=== PATIENT | male | born 2000 | race Caucasian/White ===

== ENCOUNTER 2022-07-23 14:24 | Emergency (ER) | payer SELFPAY ==
[2022-07-23] MEDS ORDERED: Cyclobenzaprine 10 MG TAB ONE (15:37)
[2022-07-23] MEDS ORDERED: diphenhydrAMINE 25 MG CAP ONE (15:37)
[2022-07-23] MEDS ORDERED: Ketorolac Tromethamine 30 MG/ML VIAL ONE (15:37)
== END 2022-07-23 16:35 | disposition home or self-care (01) ==
LOC: CSHERS 14:24
DX: R51.9 Headache, unspecified (principal)
CPT/HCPCS: 96372; 99283; J1885